=== PATIENT | male | born 1995 | race Caucasian/White ===

== ENCOUNTER 2020-08-29 11:48 | Emergency (ER) | payer OTHER, SELFPAY ==
[2020-08-29 12:08] VITALS: BP 141/96; PULSE 118; RESP 18; TEMP 37; O2SAT 94; BMI 31.9
--- NOTE | 2020-08-29 12:10 | XR_ITS ---
EXAMINATION: XR CHEST CLINICAL INFORMATION: Shortness of breath COMPARISON: Previous chest x-ray most recent 08/08/2020 TECHNIQUE: Frontal view of the chest was obtained. FINDINGS: No significant abnormality is noted involving the heart, lungs, mediastinum, bony thorax or soft tissues. IMPRESSION: Unremarkable examination.
[2020-08-29] MEDS: Magnesium Sulfate/H2O 2 GM/50 ML PIGGYBACK IV (12:35)
[2020-08-29] MEDS: methylPREDNISolone Sod Succ/PF 125 MG/2 ML VIAL IVPUSH (12:35)
[2020-08-29 12:47] LABS: MANUAL DIFF FLAG NO
[2020-08-29 12:50] LABS: Glucose Urine UA NEG (NEG); Leukocyte Esterase Urine NEG (NEG); Nitrite Urine NEG (NEG); PH 5.5 (5.0-8.0); Specific Gravity - Urine >= 1.030 (1.005-1.025); Urine Blood NEG (NEG); Urine Ketones NEG (NEG); Urine Protein NEG (NEG-TRACE)
[2020-08-29 12:51] LABS: Basophils Absolute Auto 0.1 X10*3/uL (0.0-0.2); Basophils Percent Auto 0.6 % (0-2); Eosinophils Percent Auto 8.8 % (0-4); Hematocrit 44.9 % (42-52); Hemoglobin 15.3 g/dl (14.0-18.0); Imm Gran Abs Auto 0.04 X10*3/uL (0.00-0.03); Imm Gran Pct Auto 0.4 % (0.0-0.4); Lymphocytes Absolute Auto 1.7 X10*3/uL (1.2-4.9); Lymphocytes Percent Auto 15.8 % (20-40); Mean Corpuscular HGB Conc 34.1 g/dl (31.0-36.0); Mean Corpuscular Hemoglobin 31.7 pg (27.0-33.0); Mean Corpuscular Volume 93.2 fL (80-98); Mean Platelet Volume 11.6 fL (9.4-12.4); Monocytes Absolute Auto 1.1 X10*3/uL (0.1-1.2); Monocytes Percent Auto 9.9 % (2-11); Neutrophils Percent Auto 64.5 % (45-73); Platelet Count 343 X10*3/uL (160-400); Red Blood Count 4.82 X10*6/uL (4.60-5.80); White Blood Count 10.8 X10*3/uL (4.8-10.8)
[2020-08-29 12:52] LABS: Appearance Urine CLEAR; Color Urine DARK YELLOW
[2020-08-29 13:11] LABS: Anion Gap 16 (12-20); Blood Urea Nitrogen 10 mg/dL (9-16); Calcium 9.6 mg/dL (8.4-10.2); Carbon Dioxide 25 mmol/L (22-29); Chloride 103 mmol/L (96-108); Creatinine Clr Calc Pharmacy 122.4; Estimated Glomerular Filt Rate > 60; Glucose Random 97 mg/dL (60-115); Potassium 4.8 mmol/l (3.3-5.1); Sodium 139 mmol/L (135-145)
[2020-08-29 13:16] LABS: Troponin-I High Sensitivity < 3.5 ng/L (<3.5-35.0)
--- NOTE | 2020-08-29 13:42 | PC.NURSE ---
PT STS FEELING A BIT BETTER . LS STILL SHOW SCANT I/E WHEEZING. PT MOVING GOOD AIR, STILL WORKING ON [employer] [place].
[2020-08-29 14:59] VITALS: PULSE 113; RESP 94
--- NOTE | 2020-08-29 15:04 | ED_ITS ---
HPI - Asthma General Chief Complaint: Asthma Stated Complaint: diff breathing chest tightness Time Seen by Provider: 08/29/20 12:10 Source: patient Mode of arrival: ambulatory Limitations: no limitations History of Present Illness HPI Narrative: 25-year-old male with history of asthma presenting today with complaint of asthma attack States he is having shortness of breath and some wheezing consistent with his asthma. States he ran out of his nebulizer. States this is not the worst attack he has had. States he went to catch it early before gets bad and requiring admission. States he was in the hospital 2 weeks ago for a 2 day admission. Socially he denies smoking cigarettes, marijuana smoke, alcohol drug use. MD complaint: asthma attack and wheezing Onset (ago): day(s) Severity: moderate Context: none known Related Data Current Asthma Therapy: inhaled bronchodilator ( ran out) Home Medications Medication Instructions Recorded Confirmed albuterol sulfate 90 mcg/actuation 2 puff PO Q4H PRN 08/21/20 aerosol inhaler fluticasone propionate 110 1 puff PO BID 08/21/20 mcg/actuation HFA aerosol inhaler prednisone 10 mg tablet 0 mg PO 08/21/20 Previous Rx's Medication Instructions Recorded albuterol sulfate 0.63 mg INHALATION Q6H #90 ml 08/29/20 benzonatate [Tessalon Perles] 100 mg PO BID PRN #14 cap 08/29/20 prednisone 60 mg PO DAILY #15 tab 08/29/20 Allergies Allergy/AdvReac Type Severity Reaction Status Date / Time No Known Allergies Allergy Unverified 08/12/20 19:29 [No Known Allergies*] Review of Systems Review of Systems: Constitutional: No Weight loss, No Fever, No Chills, No Night Sweats, No Fatigue, No Malaise ENT/Mouth: No Hearing loss, No Ear Pain, No Nasal Congestion, No Sinus Pain, No Hoarseness, No sore throat, No Rhinorrhea, No Swallowing Difficulty Eyes: No Eye Pain, No Swelling, No Redness, No Foreign Body, No Discharge, No Vision Changes Cardiovascular: No Chest Pain, No SOB, No Dyspnea on Exertion, No Orthopnea, No Edema, No Palpitations Respiratory: + Cough, No Sputum, + Wheezing, No Smoke Exposure, + Dyspnea Gastrointestinal: No Nausea, No Vomiting, No Diarrhea, No Constipation, No abdominal Pain, No Hematochezia, No Melena Genitourinary: no irregular bleeding, No Dysuria, No Urinary Frequency, No Hematuria, No Urinary Incontinence, No Urgency, No Flank Pain, No Urinary Flow Changes, No Hesitancy Musculoskeletal: No joint pain, No Myalgias, No Joint Swelling Skin: No Skin Lesions, No rash Neuro: No Weakness, No Numbness, No Paresthesias, No Loss of Consciousness, No D izziness, No Headache Psych: No Anxiety/Panic, No Depression, No SI/HI/AH/VH, No Social Issues, Hem e/Lymph: No Bruising, No Bleeding,No Lymphadenopathy Endocrine: No Polyuria, No Polydipsia, No Temperature Intolerance [facility] Past Medical History Medical History (Updated 08/29/20 @ 15:12 by Diogo Talbot NP) Asthma Social History Social History Alcohol intake: never Smoking Status: Unknown if ever smoked Use of substances other than those prescribed or required for medical reasons: No Advance Directives: No Advance Directives Information Provided: No Physical Exam Vital Signs and I&O and Narrative: Vital Signs and I&O: Vital Signs Temp 98.6 F 08/29/20 12:08 Pulse 118 H 08/29/20 12:08 Resp 18 08/29/20 12:08 BP 141/96 H 08/29/20 12:08 Pulse Ox 94 08/29/20 12:08 Intake & Output 08/28/20 08/29/20 08/29/20 18:59 06:59 18:59 Intake Total 50 / 50 Balance 50 / 50 Weight 95.254 kg Intake: Intake, IV Amoun t 50 / 50 Magnesium Sulf ate/H2O 2 gm In 50 / 50 50 ml @ 50 mls /hr IV ONCE ONE Rx#:[id number] Body Mass Index 31.9 Const: General: cooperative and healthy appearing; No acute distress or intoxicated appearing Nutritional Appearance: average body habitus Orientation/consciousness: patient oriented x3 HENMT: Head: Yes normal to inspection Ears: hearing grossly normal bilaterally Eyes: General: appearance normal, both eyes and all related structures Visual Wheeler: normal visual wheeler by confrontation Neck: Neck: Yes normal visual inspection, No positive Brudzinski's sign, No positive Kernig's sign and No tender Thyroid: Thyroid normal Chest: Chest palpation & inspection: normal inspection of the chest Resp: Effort & Inspection: Actively coughing, tachypneic, no tracheal deviation, no use of accessory muscles and symmetric chest movement Auscultation: wheezes Cardio: Jugular venous distension: no JVD GI: Inspection: Yes normal to inspection Percussion: Yes normal to pe rcussion Auscultation: normal bowel sounds : General: Yes no CVA tenderness Back/Spine/Pelvis: Back: no CVA tenderness Skin: General skin exam: no rashes or lesions noted Neuro: General: patient oriented x3 Extrem: General: Yes normal to inspection Course Reevaluation(s) Reevaluation #2: Feels much better he reports lung sounds improved. Exertional pulse ox by RT around the ED roughly 200 ft without any shortness of breath. Pulse ox maintained at 93-94%. Heart rate 1 tiny after a bureau. He reports he feels much better. Does not feel that this is the worst episode. MDM - Asthma MDM Narrative Medical decision making narrative: Differential Diagnosis Differential diagnosis: Likely Acute exacerbation, Status asthmaticus and Acute asthmatic bronchitis; Unlikely PE, Pneumonia, COPD exacerbation, Pulmonary edema systolic, Pulmonary edema dystolic, ARDS, Pneumothorax and Foreign body in trachea Lab Data Result diagrams: 08/29/20 12:29 08/29/20 12:29 Labs: Lab Results 08/29/20 08/29/20 08/29/20 Range/Units 12:28 12:28 12:29 WBC 10.8 (4.8-10.8) X10*3/uL RBC 4.82 (4.60-5.80) X10*6/uL Hgb 15.3 (14.0-18.0) g/dl Hct 44.9 (42-52) % MCV 93.2 (80-98) fL MCH 31.7 (27.0-33.0) pg MCHC 34.1 (31.0-36.0) g/dl RDW 12.0 (11.0-16.0) % Plt Count 343 (160-400) X10*3/uL MPV 11.6 (9.4-12.4) fL Immature Gran % (Auto) 0.4 (0.0-0.4) % Neut % (Auto) 64.5 (45-73) % Lymph % (Auto) 15.8 L (20-40) % Edwards % (Auto) 9.9 (2-11) % Eos % (Auto) 8.8 H (0-4) % Baso % (Auto) 0.6 (0-2) % Neut # (Auto) 7.0 (2.0-8.3) X10*3/uL Lymph # (Auto) 1.7 (1.2-4.9) X10*3/uL Edwards # (Auto) 1.1 (0.1-1.2) X10*3/uL Eos # (Auto) 1.0 H (0.0-0.4) X10*3/uL Baso # (Auto) 0.1 (0.0-0.2) X10*3/uL Abs Immat Gran (auto) 0.04 H (0.00-0.03) X10*3/uL Absolute Nucleated RBC 0.000 (0.0-0.012) X10*3/uL Nucleated RBC % (auto) 0.0 (0.0-0.2) /100WBC Hold Blue Top SEE NOTE Sodium (135-145) mmol/L Potassium (3.3-5.1) mmol/l Chloride (96-108) mmol/L Carbon Dioxide (22-29) mmol/L Anion Gap (12-20) BUN (9-16) mg/dL Creatinine (0.5-1.4) mg/dL Estim Creat Clear Calc Estimated GFR Random Glucose (60-115) mg/dL Calcium (8.4-10.2) mg/dL Troponin I High Sens < 3.5 (<3.5-35.0) ng/L Urine Color Urine Appearance Urine pH (5.0-8.0) Ur Specific [place] (1.005-1.025) Urine Protein (NEG-TRACE) MG/DL Urine Glucose (UA) (NEG) MG/DL Urine Ketones (NEG) MG/DL Urine Blood (NEG) Urine Nitrite (NEG) Ur Leukocyte Esterase (NEG) 08/29/20 08/29/20 Range/Units 12:29 12:29 WBC (4.8-10.8) X10*3/uL RBC (4.60-5.80) X10*6/uL Hgb (14.0-18.0) g/dl Hct (42-52) % MCV (80-98) fL MCH (27.0-33.0) pg MCHC (31.0-36.0) g/dl RDW (11.0-16.0) % Plt Count (160-400) X10*3/uL MPV (9.4-12.4) fL Immature Gran % (Auto) (0.0-0.4) % Neut % (Auto) (45-73) % Lymph % (Auto) (20-40) % Edwards % (Auto) (2-11) % Eos % (Auto) (0-4) % Baso % (Auto) (0-2) % Neut # (Auto) (2.0-8.3) X10*3/uL Lymph # (Auto) (1.2-4.9) X10*3/uL Edwards # (Auto) (0.1-1.2) X10*3/uL Eos # (Auto) (0.0-0.4) X10*3/uL Baso # (Auto) (0.0-0.2) X10*3/uL Abs Immat Gran (auto) (0.00-0.03) X10*3/uL Absolute Nucleated RBC (0.0-0.012) X10*3/uL Nucleated RBC % (auto) (0.0-0.2) /100WBC Hold Blue Top Sodium 139 (135-145) mmol/L Potassium 4.8 (3.3-5.1) mmol/l Chloride 103 (96-108) mmol/L Carbon Dioxide 25 (22-29) mmol/L Anion Gap 16 (12-20) BUN 10 (9-16) mg/dL Creatinine 1.05 (0.5-1.4) mg/dL Estim Creat Clear Calc 122.4 Estimated GFR > 60 Random Glucose 97 (60-115) mg/dL Calcium 9.6 (8.4-10.2) mg/dL Troponin I High Sens (<3.5-35.0) ng/L Urine Color DARK YELLOW Urine Appearance CLEAR Urine pH 5.5 (5.0-8.0) Ur Specific [place] >= 1.030 H (1.005-1.025) Urine Protein NEG (NEG-TRACE) MG/DL Urine Glucose (UA) NEG (NEG) MG/DL Urine Ketones NEG (NEG) MG/DL Urine Blood NEG (NEG) Urine Nitrite NEG (NEG) Ur Leukocyte Esterase NEG (NEG) Imaging Data Chest x-ray: Radiologist's impression: [address] [address] XRay Report Signed Patient: Cheko CastrejonMR#: [id number] : 1995Acct:[id number] Age/Sex: 25 / MADM Date: 08/29/20 Loc: HO.ED Attending Dr: Ordering Physician: Diogo Talbot NP Date of Service: 08/29/20 Procedure(s): XR chest 1V Accession Number(s): [id number] cc: ~ EXAMINATION: XR CHEST CLINICAL INFORMATION: Shortness of breath COMPARISON: Previous chest x-ray most recent 08/08/2020 TECHNIQUE: Frontal view of the chest was obtained. FINDINGS: No significant abnormality is noted involving the heart, lungs, mediastinum, bony thorax or soft tissues. IMPRESSION: Unremarkable examination. Dictated By:CHELLY BARRON MD Signed By:<Electronically signed by CHELLY BARRON MD in OV>08/29/20 1304 DD/ 1210 TD/TT: Strategic Sourcing Manager: RIO Critical Care Time Critical Care Time Critical Care Time: Yes Total Critical Care Time: 60 Attestation: Medication at bedside upon arrival in [id number] respiratory distress history of asthma prior intubation the past. Required immediate attention incline hour long nebulizer treatment with magnesium and Solu-Medrol. Multiple visits to bedside for evaluation And monitoring respiratory status. Discharge Plan Discharge Clinical Impression: Asthma with acute exacerbation Patient Disposition: Home, Self-Care Instructions: Asthma (ED) Additional Instructions: You had 3 prescriptions sent to her pharmacy [facility] taking medication prescribed Return if any concerns or worsening symptoms otherwise no strenuous activities for next 3 days Follow with primary care doctor as discussed Thank you Prescriptions: New albuterol sulfate 0.63 mg/3 mL solution for nebulization 0.63 mg inhalation Q6H Qty: 90 RF: 1 prednisone 20 mg tablet 60 mg PO DAILY Qty: 15 RF: 0 benzonatate [Tessalon Perles] 100 mg capsule 100 mg PO BID PRN (Reason: cough) Qty: 14 RF: 0 Referrals: Alyson Soriano NP [Primary Care Provider] - 2 days Interventions: ED Discharge Assessment Last Done: 08/29/20 15:12 Discharge Date/Time: 08/29/20 15:17
--- NOTE | 2020-08-29 15:07 | PC.NURSE ---
pt trial ambulation w resp tx using steady gait. nad.
== END 2020-08-29 15:17 | disposition home or self-care (01) ==
PROVIDERS: Nurse Practitioner Primary Care; Emergency Provider Emergency Medicine; PCP Nurse Practitioner Family
DX: J45.901 Unspecified asthma with (acute) exacerbation (principal); Z79.899 Other long term (current) drug therapy
CPT/HCPCS: 36415; 71045; 80048; 81003; 84484; 85025; 96365; 96375; 99284; 99291; J2930; J3475

== ENCOUNTER → 2020-08-30 15:44 | Outpatient (BNVA) | payer OTHER, SELFPAY | PROVIDERS: PCP Nurse Practitioner Family; Visit Provider Internal Medicine | DX: Z76.89 Persons encountering health services in other specified circumstances (principal) ==

== ENCOUNTER → 2020-09-16 15:49 | Outpatient (BNVA) | payer OTHER, SELFPAY | PROVIDERS: PCP Nurse Practitioner Family; Referring Provider Nurse Practitioner Family; Visit Provider Internal Medicine | DX: Z76.89 Persons encountering health services in other specified circumstances (principal) ==

== ENCOUNTER → 2020-11-01 16:02 | Outpatient (BNVA) | payer OTHER, SELFPAY | PROVIDERS: PCP Nurse Practitioner Family; Visit Provider Internal Medicine | DX: Z76.89 Persons encountering health services in other specified circumstances (principal) ==

== ENCOUNTER → 2021-01-05 15:52 | Outpatient (BNVA) | payer OTHER, SELFPAY | PROVIDERS: PCP Nurse Practitioner Family; Visit Provider Internal Medicine ==

== ENCOUNTER → 2021-05-09 16:02 | Outpatient (BNVA) | payer OTHER, MEDICAID, SELFPAY | PROVIDERS: PCP Nurse Practitioner Family; Visit Provider Internal Medicine ==